=== PATIENT | female | born 1950 | race Caucasian/White ===

== ENCOUNTER 2017-10-04 07:27 | Inpatient (IN) | payer OTHER ==
[2017-09-24 08:12] VITALS: BP 177/94
[~2017-10-04] VITALS: Ht 172.7 cm; Wt 104.0 kg
[~2017-10-04 07:27] MED LIST: ACET1TAB39 PO; AMLO5TAB2 PO; GABA300C10 PO; GLIM2TAB2 PO; HYDR25TA6 PO; LOVA40TA2 PO; METF500T4 PO; METO-99 PO
[2017-10-04] MEDS ORDERED: VANCOMYCIN PER PHARMACY MC PRN (08:00)
[2017-10-04] MEDS ORDERED: VANCOMYCIN 1,900 MG in SODIUM CHLORIDE 0.9% 250 ML IV ONE (08:00)
[2017-10-04] MEDS ORDERED: VANCOMYCIN 1,000 MG ONE (08:06)
[2017-10-04] MEDS ORDERED: TRANEXAMIC ACID 100 MG/ML, 10ML ONE (08:06)
[2017-10-04] MEDS ORDERED: LACTATED RINGERS 1,000 ML IV SCH (08:28)
[2017-10-04] MEDS ORDERED: LIDOCAINE 1%, 2ML SQ PRN (08:30)
[2017-10-04] MEDS ORDERED: HYDROmorphone 1 MG/ML, 1ML ONE ×2 (08:31→14:15)
[2017-10-04] MEDS ORDERED: FENTANYL PF 100 MCG/2ML ONE ×2 (08:31→13:04)
[2017-10-04] MEDS ORDERED: MIDAZOLAM 1 MG/ML, 2ML ONE (08:31)
[2017-10-04] MEDS ORDERED: LIDOCAINE 1%, 2ML ONE (08:44)
[2017-10-04] MEDS ORDERED: FLU VACC QS2017-18 (36MOS+) UP/PF 0.5 ML IM-VACC SCH (09:30)
[2017-10-04] MEDS ORDERED: PNEUMOCOCCAL 23 VACCINE IM-VACC SCH (09:30)
[2017-10-04] MEDS ORDERED: CLINDAMYCIN 150 MG/ML, 6ML ONE ×2 (09:44→10:08)
[2017-10-04] MEDS ORDERED: PROPOFOL 10 MG/ML, 20ML ONE (10:08)
[2017-10-04] MEDS ORDERED: ROCURONIUM 10 MG/ML ONE ×2 (10:08)
[2017-10-04] MEDS ORDERED: ONDANSETRON 2MG/ML, 2ML ONE (10:08)
[2017-10-04] MEDS ORDERED: HYDROmorphone 1 MG/ML, 1ML IV PRN (13:00)
[2017-10-04] MEDS ORDERED: ACETAMINOPHEN 325 MG TABLET PO PRN (13:00)
[2017-10-04] MEDS ORDERED: hydrALAzine 20 MG/ML, 1ML IV PRN (13:00)
[2017-10-04] MEDS ORDERED: OXYcodone 5 MG/5 ML ORAL.SOL UDC PO PRN (13:00)
[2017-10-04] MEDS ORDERED: ONDANSETRON 2MG/ML, 2ML IVPush PRN (13:00)
[2017-10-04] MEDS ORDERED: LABETALOL 5MG/ML, 20ML IV PRN (13:00)
[2017-10-04] MEDS ORDERED: METOCLOPRAMIDE 5 MG/ML, 2ML IV PRN (13:00)
[2017-10-04] MEDS ORDERED: OXYcodone 5 MG/5 ML ORAL.SOL UDC ONE (13:05)
[2017-10-04] MEDS: FENTANYL PF 100 MCG/2ML IV PRN ×3 (13:12→13:40)
[2017-10-04] MEDS ORDERED: BISACODYL 10 MG SUPP PR PRN (13:30)
[2017-10-04] MEDS ORDERED: PROMETHAZINE 12.5 MG SUPP PR PRN (13:30)
[2017-10-04] MEDS ORDERED: DEXTROSE 50%, 50ML SYRINGE IVPush PRN (13:30)
[2017-10-04] MEDS ORDERED: DEXTROSE 4 GM TAB.CHEW PO PRN (13:30)
[2017-10-04] MEDS ORDERED: DIAZEPAM 5 MG TABLET PO PRN (13:30)
[2017-10-04] MEDS ORDERED: MAGNESIUM HYDROXIDE 8%, 30ML UDC PO PRN (13:30)
[2017-10-04] MEDS ORDERED: DIPHENHYDRAMINE 25 MG CAPSULE PO PRN (13:30)
[2017-10-04] MEDS ORDERED: SENNA/DOCUSATE TABLET PO PRN (13:30)
[2017-10-04] MEDS ORDERED: GLUCAGON 1 MG IM PRN (13:30)
[2017-10-04] MEDS ORDERED: ALUMINUM/MAG/SIMETHICONE 30 ML UDC PO PRN (13:30)
[2017-10-04] MEDS ORDERED: LORazepam 1MG TABLET PO PRN (13:30)
[2017-10-04] MEDS ORDERED: PROMETHAZINE 25 MG/ML, 1ML IM PRN (13:30)
[2017-10-04] MEDS ORDERED: ONDANSETRON 4 MG TABLET PO PRN (13:30)
[2017-10-04] MEDS: SODIUM CHLORIDE 0.9% 1,000 ML IV SCH ×2 (15:46→23:33)
[2017-10-04] MEDS: OXYcodone IR 5MG TABLET PO PRN ×2 (17:02→21:02)
[2017-10-04] MEDS: GLIMEPIRIDE 1 MG TABLET PO SCH (17:03)
[2017-10-04] MEDS: METOPROLOL TARTRATE 50 MG TABLET PO SCH (17:03)
[2017-10-04] MEDS: ASPIRIN 81 MG TABLET EC PO SCH (17:03)
[2017-10-04] MEDS: INSULIN REGULAR 100 UNITS/ML, 3ML VIAL SQ-INSULIN SCH ×2 (17:04→21:16)
[2017-10-04] MEDS: ONDANSETRON 2MG/ML, 2ML IV PRN (17:46)
[2017-10-04 20:00] VITALS: BP 143/74
[2017-10-04] MEDS: DOCUSATE 100 MG CAPSULE PO SCH (21:02)
[2017-10-04] MEDS: GABAPENTIN 300 MG CAPSULE PO SCH (21:03)
[2017-10-04] MEDS ORDERED: VANCOMYCIN PMX 1GM/200ML 200 ML IVPB ONE (21:30)
[2017-10-04] MEDS: LOVASTATIN 40 MG TABLET PO SCH (23:33)
[2017-10-04] MEDS: HYDROmorphone 1 MG/ML, 1ML IV PRN (23:33)
[2017-10-04] MEDS: ACETAMINOPHEN 650 MG/20.3 ML UDC PO SCH (23:52)
[2017-10-04] MEDS: SODIUM CHLORIDE FLUSH 10ML SYR IVF SCH (23:55)
[2017-10-05 00:22] VITALS: BP 173/79
[2017-10-05] MEDS: OXYcodone IR 5MG TABLET PO PRN (01:04)
[2017-10-05] MEDS: HYDROmorphone 1 MG/ML, 1ML IV PRN ×2 (02:57→23:50)
[2017-10-05] MEDS: SODIUM CHLORIDE 0.9% 1,000 ML IV SCH ×2 (04:18→06:29)
[2017-10-05 04:26] VITALS: BP 95/61
[2017-10-05 06:05] LABS: BLOOD UREA NITROGEN 28 mg/dL (7-18)
[2017-10-05] MEDS: ONDANSETRON 2MG/ML, 2ML IV PRN (06:09)
[2017-10-05 06:12] VITALS: BP 93/59
[2017-10-05] MEDS: METOPROLOL TARTRATE 50 MG TABLET PO SCH ×3 (06:12→17:41)
[2017-10-05] MEDS: ASPIRIN 81 MG TABLET EC PO SCH ×2 (06:23→17:13)
[2017-10-05] MEDS: GLIMEPIRIDE 1 MG TABLET PO SCH ×2 (07:29→17:13)
[2017-10-05] MEDS: AMLODIPINE 5 MG TABLET PO SCH (07:29)
[2017-10-05] MEDS: GABAPENTIN 300 MG CAPSULE PO SCH ×2 (07:29→22:00)
[2017-10-05] MEDS: HYDROCHLOROTHIAZIDE 25 MG TABLET PO SCH (07:29)
[2017-10-05] MEDS: SODIUM CHLORIDE FLUSH 10ML SYR IVF SCH ×2 (07:30→22:01)
[2017-10-05] MEDS: TAMSULOSIN 0.4 MG CAP.ER.24H PO SCH (07:30)
[2017-10-05] MEDS: DOCUSATE 100 MG CAPSULE PO SCH ×2 (07:30→22:01)
[2017-10-05] MEDS ORDERED: ACETAMINOPHEN 500 MG TABLET ONE (07:36)
[2017-10-05] MEDS: ACETAMINOPHEN 650 MG/20.3 ML UDC PO SCH ×2 (07:43→17:14)
[2017-10-05] MEDS: INSULIN REGULAR 100 UNITS/ML, 3ML VIAL SQ-INSULIN SCH ×4 (07:44→22:12)
[2017-10-05 07:47] VITALS: BP 110/69
[2017-10-05 13:30] VITALS: BP 101/62
[2017-10-05] MEDS: KETOROLAC 30 MG/1 ML IV SCH ×2 (14:34→22:01)
[2017-10-05 19:40] VITALS: BP 102/68
[2017-10-05] MEDS: LOVASTATIN 40 MG TABLET PO SCH (22:01)
[2017-10-06] MEDS: SODIUM CHLORIDE 0.9% 1,000 ML IV SCH ×3 (03:04→19:36)
[2017-10-06 03:21] VITALS: BP 110/65
[2017-10-06] MEDS ORDERED: ACETAMINOPHEN 500 MG TABLET ONE ×2 (06:12→14:37)
[2017-10-06] MEDS: METOPROLOL TARTRATE 50 MG TABLET PO SCH ×2 (06:16→18:27)
[2017-10-06] MEDS: KETOROLAC 30 MG/1 ML IV SCH (06:17)
[2017-10-06] MEDS: ACETAMINOPHEN 650 MG/20.3 ML UDC PO SCH ×3 (06:17→22:00)
[2017-10-06] MEDS: ASPIRIN 81 MG TABLET EC PO SCH ×2 (06:29→18:25)
[2017-10-06 07:33] VITALS: BP 113/70
[2017-10-06] MEDS: TAMSULOSIN 0.4 MG CAP.ER.24H PO SCH (07:50)
[2017-10-06] MEDS: DOCUSATE 100 MG CAPSULE PO SCH ×2 (07:50→19:47)
[2017-10-06] MEDS: AMLODIPINE 5 MG TABLET PO SCH (07:50)
[2017-10-06] MEDS: INSULIN REGULAR 100 UNITS/ML, 3ML VIAL SQ-INSULIN SCH ×4 (07:50→20:04)
[2017-10-06] MEDS: SODIUM CHLORIDE FLUSH 10ML SYR IVF SCH ×2 (07:51→19:47)
[2017-10-06] MEDS: GABAPENTIN 300 MG CAPSULE PO SCH ×2 (07:51→19:47)
[2017-10-06] MEDS: HYDROCHLOROTHIAZIDE 25 MG TABLET PO SCH (07:51)
[2017-10-06] MEDS: GLIMEPIRIDE 1 MG TABLET PO SCH ×2 (07:51→16:49)
[2017-10-06 13:05] VITALS: BP 106/65
[2017-10-06 19:25] VITALS: BP 107/59
[2017-10-06] MEDS: OXYcodone IR 5MG TABLET PO PRN (19:46)
[2017-10-06] MEDS: LOVASTATIN 40 MG TABLET PO SCH (19:47)
[2017-10-07 02:04] VITALS: BP 130/75
[2017-10-07] MEDS: OXYcodone IR 5MG TABLET PO PRN ×2 (04:46→18:02)
[2017-10-07] MEDS: ACETAMINOPHEN 650 MG/20.3 ML UDC PO SCH ×2 (06:07→14:56)
[2017-10-07] MEDS: ASPIRIN 81 MG TABLET EC PO SCH ×2 (06:07→18:02)
[2017-10-07] MEDS: METOPROLOL TARTRATE 50 MG TABLET PO SCH ×2 (06:08→18:00)
[2017-10-07] MEDS: SODIUM CHLORIDE 0.9% 1,000 ML IV SCH ×2 (06:08→14:03)
[2017-10-07] MEDS: INSULIN REGULAR 100 UNITS/ML, 3ML VIAL SQ-INSULIN SCH ×3 (07:00→16:00)
[2017-10-07] MEDS: GLIMEPIRIDE 1 MG TABLET PO SCH ×2 (07:58→18:07)
[2017-10-07 08:00] VITALS: BP 103/62
[2017-10-07] MEDS: TAMSULOSIN 0.4 MG CAP.ER.24H PO SCH (08:32)
[2017-10-07] MEDS: DOCUSATE 100 MG CAPSULE PO SCH (08:32)
[2017-10-07] MEDS: GABAPENTIN 300 MG CAPSULE PO SCH (08:33)
[2017-10-07] MEDS: SODIUM CHLORIDE FLUSH 10ML SYR IVF SCH (08:34)
[2017-10-07] MEDS: HYDROCHLOROTHIAZIDE 25 MG TABLET PO SCH (08:35)
[2017-10-07] MEDS: AMLODIPINE 5 MG TABLET PO SCH (08:35)
[2017-10-07 14:38] VITALS: BP 127/75
[2017-10-07] MEDS ORDERED: ACETAMINOPHEN 500 MG TABLET ONE (14:54)
[2017-10-07] MEDS ORDERED: ACET-1600 PO (16:10)
[2017-10-07] MEDS ORDERED: OXYC5TAB3 PO (16:11)
[2017-10-07] MEDS ORDERED: ASPI-496 PO (16:13)
[2017-10-07] MEDS ORDERED: DOCU-131 PO (16:14)
== END 2017-10-07 18:16 | DRG 469 ==
LOC: ORIP 07:27 → 4NOR 14:57
PROVIDERS: ADMIT Orthopaedic Surgery Adult Reconstructive Orthopaedic Surgery; ATTEND Orthopaedic Surgery Adult Reconstructive Orthopaedic Surgery
PROC: 0SRC0J9 Replacement of Right Knee Joint with Synthetic Substitute, Cemented, Open Approach (ICD-10-PCS; principal; 2017-10-04 09:30)
DX: M17.0 Bilateral primary osteoarthritis of knee (principal); E43 Unspecified severe protein-calorie malnutrition; E11.9 Type 2 diabetes mellitus without complications; I10 Essential (primary) hypertension; Z88.1 Allergy status to other antibiotic agents; Z68.34 Body mass index [BMI] 34.0-34.9, adult
CPT/HCPCS: 36415; 80048; 82040; 82962; 85018; 90686; 90732; J1170; J1815; J1885; J2250; J2405; J2704; J3010; J3370; J7030; J7050; J7120

== ENCOUNTER → 2018-03-01 | Outpatient (CLI) | payer OTHER ==
[~2018-03-01] MED LIST changes: +ACET-1600 PO; +ASPI-496 PO; +DOCU-131 PO; +OXYC5TAB3 PO
== END | disposition home or self-care (01) ==
LOC: CFH 16:09
PROVIDERS: ATTEND Internal Medicine Nephrology
DX: N28.1 Cyst of kidney, acquired (principal); N18.2 Chronic kidney disease, stage 2 (mild)
CPT/HCPCS: 76770

== ENCOUNTER 2018-04-04 06:26 | Inpatient (IN) | payer OTHER ==
[~2018-04-04] VITALS: Ht 172.7 cm; Wt 114.6 kg
[~2018-04-04 06:26] MED LIST changes: +LISI1TAB5 PO; +LISI1TAB7 PO
[2018-04-04] MEDS ORDERED: LACTATED RINGERS 1,000 ML IV SCH (06:54)
[2018-04-04] MEDS ORDERED: VANCOMYCIN PER PHARMACY MC ONE (06:54)
[2018-04-04] MEDS ORDERED: VANCOMYCIN 1,900 MG in SODIUM CHLORIDE 0.9% 250 ML IV ONE (07:00)
[2018-04-04] MEDS ORDERED: FENTANYL PF 250 MCG/5ML ONE (07:40)
[2018-04-04] MEDS ORDERED: MIDAZOLAM 1 MG/ML, 2ML ONE (07:40)
[2018-04-04] MEDS ORDERED: PROPOFOL 100 ML ONE (08:09)
[2018-04-04] MEDS ORDERED: ROPIvacaine/PF 0.2%, 20 ML ONE (08:28)
[2018-04-04] MEDS ORDERED: TRANEXAMIC ACID 100 MG/ML, 10ML ONE (08:28)
[2018-04-04] MEDS ORDERED: KETOROLAC 60 MG/2 ML ONE (08:28)
[2018-04-04] MEDS ORDERED: EPINEPHRINE 1 MG/ML, 1ML ONE (08:28)
[2018-04-04] MEDS ORDERED: ACETAMINOPHEN 500 MG TABLET ONE (08:50)
[2018-04-04] MEDS ORDERED: CLINDAMYCIN 150 MG/ML, 6ML ONE (08:58)
[2018-04-04] MEDS ORDERED: DEXTROSE 4 GM TAB.CHEW PO PRN (09:00)
[2018-04-04] MEDS ORDERED: ONDANSETRON ODT 8 MG PO PRN (09:00)
[2018-04-04] MEDS ORDERED: ONDANSETRON 4 MG TABLET PO PRN (09:00)
[2018-04-04] MEDS ORDERED: OxyconTIN ER 10 MG TAB.ER PO ONE (09:00)
[2018-04-04] MEDS ORDERED: LABETALOL 5MG/ML, 20ML IV PRN (09:00)
[2018-04-04] MEDS ORDERED: OXYcodone 5 MG/5 ML ORAL.SOL UDC PO PRN (09:00)
[2018-04-04] MEDS ORDERED: PROMETHAZINE 25 MG/ML, 1ML IV PRN (09:00)
[2018-04-04] MEDS ORDERED: MORPHINE SULFATE 4 MG/ML, 1ML IVPush PRN (09:00)
[2018-04-04] MEDS ORDERED: DEXTROSE 50%, 50ML SYRINGE IVPush PRN (09:00)
[2018-04-04] MEDS ORDERED: HYDROmorphone 1 MG/ML, 1ML IV PRN (09:00)
[2018-04-04] MEDS ORDERED: GLUCAGON 1 MG IM PRN (09:00)
[2018-04-04] MEDS ORDERED: MAGNESIUM HYDROXIDE 8%, 30ML UDC PO PRN (09:00)
[2018-04-04] MEDS: SODIUM CHLORIDE FLUSH 10ML SYR IVF SCH ×2 (09:00→20:39)
[2018-04-04] MEDS ORDERED: hydrALAzine 20 MG/ML, 1ML IV PRN (09:00)
[2018-04-04] MEDS ORDERED: LORazepam 1MG TABLET PO PRN (09:00)
[2018-04-04] MEDS ORDERED: ONDANSETRON 2MG/ML, 2ML IV PRN (09:00)
[2018-04-04] MEDS ORDERED: PROMETHAZINE 25 MG/ML, 1ML IM PRN (09:00)
[2018-04-04] MEDS ORDERED: DIPHENHYDRAMINE 25 MG CAPSULE PO PRN (09:00)
[2018-04-04] MEDS ORDERED: ACETAMINOPHEN 500 MG TABLET PO ONE (09:00)
[2018-04-04] MEDS ORDERED: PROMETHAZINE 12.5 MG SUPP PR PRN (09:00)
[2018-04-04] MEDS ORDERED: BISACODYL 10 MG SUPP PR PRN (09:00)
[2018-04-04] MEDS ORDERED: CEFAZOLIN 1,000 MG ONE (09:25)
[2018-04-04] MEDS ORDERED: DEXAMETHASONE 4 MG/ML, 1ML ONE (09:25)
[2018-04-04] MEDS ORDERED: PROPOFOL 10 MG/ML, 20ML ONE ×4 (09:25)
[2018-04-04] MEDS: INSULIN REGULAR 100 UNITS/ML, 3ML VIAL SQ-INSULIN SCH ×3 (11:00→20:40)
[2018-04-04] MEDS ORDERED: FENTANYL PF 100 MCG/2ML ONE ×3 (11:35→12:38)
[2018-04-04] MEDS ORDERED: OXYcodone 5 MG/5 ML ORAL.SOL UDC ONE (12:16)
[2018-04-04] MEDS: FENTANYL PF 100 MCG/2ML IV PRN ×3 (12:16→12:45)
[2018-04-04] MEDS: SODIUM CHLORIDE 0.9% 1,000 ML IV SCH ×2 (13:51→21:00)
[2018-04-04] MEDS: HYDROcodone/APAP 5/325 TABLET PO PRN ×4 (13:52→23:50)
[2018-04-04] MEDS: DOCUSATE 100 MG CAPSULE PO SCH ×2 (14:09→20:39)
[2018-04-04] MEDS: MULTIVITAMINS/MINERALS TABLET PO SCH (14:09)
[2018-04-04] MEDS: TAMSULOSIN 0.4 MG CAP.ER.24H PO SCH (14:09)
[2018-04-04] MEDS: CLINDAMYCIN PMX 600MG/50ML 50 ML IVPB SCH (17:31)
[2018-04-04] MEDS: METOPROLOL TARTRATE 100 MG TABLET PO SCH (17:35)
[2018-04-04] MEDS: ASPIRIN 81 MG TABLET EC PO SCH (17:35)
[2018-04-04 18:43] VITALS: BP 143/74
[2018-04-04] MEDS: GABAPENTIN 300 MG CAPSULE PO SCH (20:38)
[2018-04-04] MEDS: GLIMEPIRIDE 1 MG TABLET PO SCH (20:39)
[2018-04-04] MEDS: LOVASTATIN 40 MG TABLET PO SCH (20:39)
[2018-04-05 00:02] VITALS: BP 133/67
[2018-04-05] MEDS: CLINDAMYCIN PMX 600MG/50ML 50 ML IVPB SCH (00:45)
[2018-04-05] MEDS: ALUMINUM/MAG/SIMETHICONE 30 ML UDC PO PRN (00:49)
[2018-04-05] MEDS: HYDROcodone/APAP 5/325 TABLET PO PRN ×4 (04:09→22:08)
[2018-04-05 04:11] VITALS: BP 129/73
[2018-04-05 05:12] LABS: ALBUMIN 2.9 g/dL (3.4-5.0); ANION GAP 8 mmol/L (5-15); CALCIUM 8.3 mg/dL (8.5-10.1); CHLORIDE 101 mmol/L (98-107)
[2018-04-05 05:13] LABS: CREATININE 1.08 mg/dL (0.55-1.02)
[2018-04-05] MEDS: SODIUM CHLORIDE 0.9% 1,000 ML IV SCH ×3 (05:20→23:06)
[2018-04-05] MEDS: METOPROLOL TARTRATE 100 MG TABLET PO SCH ×2 (06:05→17:36)
[2018-04-05] MEDS: ASPIRIN 81 MG TABLET EC PO SCH ×2 (06:05→17:35)
[2018-04-05 07:19] VITALS: BP 101/60
[2018-04-05] MEDS: KETOROLAC 30 MG/1 ML IV SCH ×4 (09:00→22:08)
[2018-04-05] MEDS: TAMSULOSIN 0.4 MG CAP.ER.24H PO SCH (09:00)
[2018-04-05] MEDS: DOCUSATE 100 MG CAPSULE PO SCH ×2 (09:13→20:45)
[2018-04-05] MEDS: MULTIVITAMINS/MINERALS TABLET PO SCH (09:14)
[2018-04-05] MEDS: INSULIN REGULAR 100 UNITS/ML, 3ML VIAL SQ-INSULIN SCH ×4 (09:14→20:48)
[2018-04-05] MEDS: AMLODIPINE 5 MG TABLET PO SCH (09:14)
[2018-04-05] MEDS: GABAPENTIN 300 MG CAPSULE PO SCH ×2 (09:14→20:45)
[2018-04-05] MEDS: SODIUM CHLORIDE FLUSH 10ML SYR IVF SCH ×2 (09:14→20:46)
[2018-04-05] MEDS: GLIMEPIRIDE 1 MG TABLET PO SCH ×2 (09:14→20:45)
[2018-04-05 13:58] VITALS: BP 112/74
[2018-04-05 20:12] VITALS: BP 138/76
[2018-04-05] MEDS: LOVASTATIN 40 MG TABLET PO SCH (20:45)
[2018-04-06 02:00] VITALS: BP 126/65
[2018-04-06] MEDS: DIAZEPAM 5 MG TABLET PO PRN ×4 (02:26→21:05)
[2018-04-06] MEDS: HYDROcodone/APAP 5/325 TABLET PO PRN ×5 (02:26→21:05)
[2018-04-06] MEDS: METOPROLOL TARTRATE 100 MG TABLET PO SCH ×2 (06:20→16:52)
[2018-04-06] MEDS: ASPIRIN 81 MG TABLET EC PO SCH ×2 (06:20→16:53)
[2018-04-06] MEDS: INSULIN REGULAR 100 UNITS/ML, 3ML VIAL SQ-INSULIN SCH ×4 (06:34→21:07)
[2018-04-06] MEDS: SODIUM CHLORIDE 0.9% 1,000 ML IV SCH ×2 (07:48→16:30)
[2018-04-06 08:21] VITALS: BP 113/49
[2018-04-06] MEDS: TAMSULOSIN 0.4 MG CAP.ER.24H PO SCH (09:00)
[2018-04-06] MEDS: DOCUSATE 100 MG CAPSULE PO SCH ×2 (09:37→21:05)
[2018-04-06] MEDS: GLIMEPIRIDE 1 MG TABLET PO SCH ×2 (09:37→21:05)
[2018-04-06] MEDS: SODIUM CHLORIDE FLUSH 10ML SYR IVF SCH ×2 (09:37→21:05)
[2018-04-06] MEDS: MULTIVITAMINS/MINERALS TABLET PO SCH (09:37)
[2018-04-06] MEDS: GABAPENTIN 300 MG CAPSULE PO SCH ×2 (09:37→21:04)
[2018-04-06] MEDS: AMLODIPINE 5 MG TABLET PO SCH (09:37)
[2018-04-06] MEDS: ALUMINUM/MAG/SIMETHICONE 30 ML UDC PO PRN ×2 (11:38→16:53)
[2018-04-06 13:22] VITALS: BP 121/52
[2018-04-06 18:31] VITALS: BP 113/63
[2018-04-06] MEDS: LOVASTATIN 40 MG TABLET PO SCH (21:05)
[2018-04-07] VITALS: BP 109/58
[2018-04-07] MEDS: SODIUM CHLORIDE 0.9% 1,000 ML IV SCH ×3 (01:12→16:37)
[2018-04-07] MEDS: HYDROcodone/APAP 5/325 TABLET PO PRN ×5 (01:34→21:27)
[2018-04-07] MEDS: METOPROLOL TARTRATE 100 MG TABLET PO SCH ×2 (05:38→17:14)
[2018-04-07] MEDS: ASPIRIN 81 MG TABLET EC PO SCH ×2 (05:38→17:14)
[2018-04-07] MEDS: DIAZEPAM 5 MG TABLET PO PRN ×3 (05:38→17:14)
[2018-04-07] MEDS: INSULIN REGULAR 100 UNITS/ML, 3ML VIAL SQ-INSULIN SCH ×4 (07:26→21:00)
[2018-04-07] MEDS: SODIUM CHLORIDE FLUSH 10ML SYR IVF SCH ×2 (08:05→21:27)
[2018-04-07] MEDS: GABAPENTIN 300 MG CAPSULE PO SCH ×2 (08:05→21:27)
[2018-04-07] MEDS: DOCUSATE 100 MG CAPSULE PO SCH ×2 (08:05→21:27)
[2018-04-07] MEDS: SENNA/DOCUSATE TABLET PO PRN (08:06)
[2018-04-07] MEDS: AMLODIPINE 5 MG TABLET PO SCH (08:06)
[2018-04-07] MEDS: MULTIVITAMINS/MINERALS TABLET PO SCH (08:06)
[2018-04-07] MEDS: TAMSULOSIN 0.4 MG CAP.ER.24H PO SCH (08:06)
[2018-04-07] MEDS: GLIMEPIRIDE 1 MG TABLET PO SCH ×2 (08:12→21:27)
[2018-04-07 08:16] VITALS: BP 95/42
[2018-04-07] MEDS ORDERED: ASPI-621 PO (09:54)
[2018-04-07] MEDS ORDERED: DOCU100C33 PO (09:54)
[2018-04-07] MEDS ORDERED: DIAZ5TAB4 PO (09:54)
[2018-04-07] MEDS ORDERED: HYDR-3240 PO (09:54)
[2018-04-07 16:39] VITALS: BP 110/50
[2018-04-07 18:47] VITALS: BP 135/64
[2018-04-07] MEDS: LOVASTATIN 40 MG TABLET PO SCH (21:27)
[2018-04-08] MEDS: DIAZEPAM 5 MG TABLET PO PRN (01:48)
[2018-04-08] MEDS: HYDROcodone/APAP 5/325 TABLET PO PRN ×3 (01:48→10:05)
[2018-04-08 02:05] VITALS: BP 131/62
[2018-04-08] MEDS: SODIUM CHLORIDE 0.9% 1,000 ML IV SCH ×3 (02:54→20:42)
[2018-04-08] MEDS: ASPIRIN 81 MG TABLET EC PO SCH ×2 (06:17→16:14)
[2018-04-08] MEDS: METOPROLOL TARTRATE 100 MG TABLET PO SCH ×2 (06:17→16:14)
[2018-04-08] MEDS: INSULIN REGULAR 100 UNITS/ML, 3ML VIAL SQ-INSULIN SCH ×4 (06:33→21:02)
[2018-04-08 08:34] VITALS: BP 140/60
[2018-04-08] MEDS: MULTIVITAMINS/MINERALS TABLET PO SCH (10:04)
[2018-04-08] MEDS: DOCUSATE 100 MG CAPSULE PO SCH ×2 (10:04→21:02)
[2018-04-08] MEDS: SODIUM CHLORIDE FLUSH 10ML SYR IVF SCH ×2 (10:04→21:03)
[2018-04-08] MEDS: GLIMEPIRIDE 1 MG TABLET PO SCH ×2 (10:05→21:02)
[2018-04-08] MEDS: AMLODIPINE 5 MG TABLET PO SCH (10:05)
[2018-04-08] MEDS: GABAPENTIN 300 MG CAPSULE PO SCH ×2 (10:05→21:02)
[2018-04-08] MEDS: TAMSULOSIN 0.4 MG CAP.ER.24H PO SCH (10:05)
[2018-04-08] MEDS: SENNA/DOCUSATE TABLET PO PRN (13:37)
[2018-04-08 14:55] VITALS: BP 107/61
[2018-04-08] MEDS: LOVASTATIN 40 MG TABLET PO SCH (21:02)
[2018-04-08 21:05] VITALS: BP 125/66
[2018-04-09] MEDS: HYDROcodone/APAP 5/325 TABLET PO PRN ×4 (00:46→23:54)
[2018-04-09 02:04] VITALS: BP 109/54
[2018-04-09] MEDS: SODIUM CHLORIDE 0.9% 1,000 ML IV SCH ×3 (05:24→22:48)
[2018-04-09] MEDS: INSULIN REGULAR 100 UNITS/ML, 3ML VIAL SQ-INSULIN SCH ×4 (06:25→20:29)
[2018-04-09] MEDS: METOPROLOL TARTRATE 100 MG TABLET PO SCH ×2 (06:29→18:11)
[2018-04-09] MEDS: ASPIRIN 81 MG TABLET EC PO SCH ×2 (06:29→18:11)
[2018-04-09 08:00] VITALS: BP 126/76
[2018-04-09] MEDS: AMLODIPINE 5 MG TABLET PO SCH (10:39)
[2018-04-09] MEDS: DOCUSATE 100 MG CAPSULE PO SCH ×2 (10:39→19:58)
[2018-04-09] MEDS: SENNA/DOCUSATE TABLET PO PRN (10:39)
[2018-04-09] MEDS: DIAZEPAM 5 MG TABLET PO PRN ×3 (10:39→23:54)
[2018-04-09] MEDS: TAMSULOSIN 0.4 MG CAP.ER.24H PO SCH (10:40)
[2018-04-09] MEDS: MULTIVITAMINS/MINERALS TABLET PO SCH (10:40)
[2018-04-09] MEDS: SODIUM CHLORIDE FLUSH 10ML SYR IVF SCH ×2 (10:40→19:59)
[2018-04-09] MEDS: GLIMEPIRIDE 1 MG TABLET PO SCH ×2 (10:40→19:58)
[2018-04-09] MEDS: GABAPENTIN 300 MG CAPSULE PO SCH ×2 (10:40→19:58)
[2018-04-09 13:44] VITALS: BP 117/66
[2018-04-09 18:09] VITALS: BP 165/75
[2018-04-09 19:45] VITALS: BP 113/58
[2018-04-09] MEDS: LOVASTATIN 40 MG TABLET PO SCH (19:58)
[2018-04-10 00:34] VITALS: BP 102/63
[2018-04-10] MEDS: ASPIRIN 81 MG TABLET EC PO SCH (05:57)
[2018-04-10] MEDS: DIAZEPAM 5 MG TABLET PO PRN ×2 (05:57→15:32)
[2018-04-10] MEDS: METOPROLOL TARTRATE 100 MG TABLET PO SCH (05:57)
[2018-04-10] MEDS: HYDROcodone/APAP 5/325 TABLET PO PRN ×2 (05:57→15:32)
[2018-04-10] MEDS: INSULIN REGULAR 100 UNITS/ML, 3ML VIAL SQ-INSULIN SCH ×2 (06:48→11:40)
[2018-04-10] MEDS: SODIUM CHLORIDE 0.9% 1,000 ML IV SCH (07:30)
[2018-04-10 07:34] VITALS: BP 118/56
[2018-04-10] MEDS: AMLODIPINE 5 MG TABLET PO SCH (08:58)
[2018-04-10] MEDS: MULTIVITAMINS/MINERALS TABLET PO SCH (08:58)
[2018-04-10] MEDS: GABAPENTIN 300 MG CAPSULE PO SCH (08:58)
[2018-04-10] MEDS: TAMSULOSIN 0.4 MG CAP.ER.24H PO SCH (08:58)
[2018-04-10] MEDS: GLIMEPIRIDE 1 MG TABLET PO SCH (08:58)
[2018-04-10] MEDS: DOCUSATE 100 MG CAPSULE PO SCH (08:58)
[2018-04-10] MEDS: SODIUM CHLORIDE FLUSH 10ML SYR IVF SCH (08:59)
[2018-04-10 12:09] VITALS: BP 131/61
[2018-04-10 15:01] VITALS: BP 139/57
== END 2018-04-10 16:20 | disposition home or self-care (01) | DRG 470 ==
LOC: OUT 06:26 → EDSTATUS 08:30 → ORIP 08:36 → 4NOR 13:21
PROVIDERS: ADMIT Orthopaedic Surgery Adult Reconstructive Orthopaedic Surgery; ATTEND Orthopaedic Surgery Adult Reconstructive Orthopaedic Surgery
PROC: 0SRD0J9 Replacement of Left Knee Joint with Synthetic Substitute, Cemented, Open Approach (ICD-10-PCS; principal; 2018-04-04 08:30)
DX: M17.12 Unilateral primary osteoarthritis, left knee (principal); M97.12XA Periprosthetic fracture around internal prosthetic left knee joint, initial encounter; M81.0 Age-related osteoporosis without current pathological fracture; M85.859 Other specified disorders of bone density and structure, unspecified thigh; I10 Essential (primary) hypertension; E11.9 Type 2 diabetes mellitus without complications
CPT/HCPCS: 36415; 80048; 82040; 82962; 85018; C1713; J0171; J0690; J1100; J1815; J1885; J2250; J2704; J2795; J3010; J3370; C1776; J7030; J7050; J7120